=== PATIENT | female | born 1960 | race Caucasian/White ===

== ENCOUNTER → 2022-01-28 | Day surgery (SDC) | payer MEDICARE, OTHER ==
[~2022-01-28] MED LIST: AMLODIPINE BESY10 MG PO; ESTRADIOL1 EACH TD; JANUMET XR 50-1 EAC1 PO; LINZESS290 MCG PO; LISINOPRIL40 MG PO; OXYCODONE-ACET1 EACH PO; OZEMPIC1 MG/0.71 SQ; PROGESTERONE200 MG PO; ZOCOR 40 MG TAB40 MG PO
== END | disposition home or self-care (01) ==
LOC: OR 07:03
DX: Z12.11 Encounter for screening for malignant neoplasm of colon (principal); K64.1 Second degree hemorrhoids; I10 Essential (primary) hypertension; E78.5 Hyperlipidemia, unspecified; E11.9 Type 2 diabetes mellitus without complications; E78.00 Pure hypercholesterolemia, unspecified; E66.9 Obesity, unspecified; Z68.34 Body mass index [BMI] 34.0-34.9, adult; Z79.84 Long term (current) use of oral hypoglycemic drugs; Z79.899 Other long term (current) drug therapy
CPT/HCPCS: 82962; J2001; J2704; J7040